=== PATIENT | female | born 1960 | race Two or more races ===

== ENCOUNTER 2016-06-04 13:27 | Emergency (ER) | payer SELFPAY ==
[~2016-06-04] VITALS: Ht 154.9 cm; Wt 66.2 kg
[2016-06-04 13:32] VITALS: BP 94/63
[2016-06-04 14:20] LABS: BILIRUBIN,URINE SMALL (NEG); GLUCOSE,URINE NEGATIVE (NEG)
[2016-06-04 14:21] LABS: BACTERIA,URINE FEW /HPF (0-FEW); NITRITE,URINE NEGATIVE (NEG); PROTEIN,URINE 100 mg/dL (NEG-TRACE); RBC,URINE OCC /HPF (0-2); UROBILINOGEN,URINE 0.2 mg/dL (0.2 mg/dL); WBC,URINE >40 /HPF (0-4)
[2016-06-04] MEDS ORDERED: IV NORMAL SALINE 1000ML BAG 1,000 ML IV ONE (14:30)
--- NOTE | 2016-06-04 14:53 | PHYS DOC ---
Past Medical History Past Medical History: No Pertinent History Past Surgical History: No Surgical History Alcohol Use: None Drug Use: None Adult General Chief Complaint Chief Complaint: FLANK PAIN HPI HPI Patient is a 55 year old female who presents with family for dysuria, fever and flank pain developing over the past few days. Pain is constant, bilateral, achy. She denies abdominal pain, nausea or vomiting, hematuria, chest pain, dyspnea, cough, diarrhea, constipation. Denies headache, rhinorrhea, sore throat. She was sent from outside clinic for evaluation of pyelonephritis. Review of Systems Review of Systems Constitutional: Has fever and chills [] Eyes: Denies change in visual acuity, redness, or eye pain [] HENT: Denies nasal congestion or sore throat [] Respiratory: Denies cough or shortness of breath [] Cardiovascular: No additional information not addressed in HPI [] GI: Denies abdominal pain, nausea, vomiting, bloody stools or diarrhea [] : Denies hematuria [] Musculoskeletal: Denies joint pain [] Integument: Denies rash or skin lesions [] Neurologic: Denies headache, focal weakness or sensory changes [] Endocrine: Denies polyuria or polydipsia [] Current Medications Current Medications Current Medications Medications (Trade) Dose Ordered Sig/Shelia Start Time Stop Time Status Last Admin Dose Admin Sodium Chloride (Iv Sodium Chloride 0.9% 1000ml Bag) 1,000 ml @ 1,000 mls/hr 1X ONCE 06/04/16 14:30 06/04/16 15:29 06/04/16 14:25 1,000 MLS/HR Allergies Allergies Allergies Coded Allergies Type Severity Reaction Last Updated Verified No Known Drug Allergies 06/04/16 No Physical Exam Physical Exam Constitutional: Well developed, well nourished, no acute distress, non-toxic appearance. [] HENT: Normocephalic, atraumatic, bilateral external ears normal, oropharynx moist, no oral exudates, nose normal. [] Eyes: PERRLA, EOMI, conjunctiva normal, no discharge. [] Neck: Normal range of motion, supple. [] Cardiovascular:Heart rate regular rhythm [] Lungs & Thorax: Bilateral breath sounds clear to auscultation [] Abdomen: Bowel sounds normal, soft, no tenderness. [] Skin: Warm, dry, no erythema, no rash. [] Back: No tenderness. Has mild bilateral CVA tenderness. [] Extremities: No tenderness, ROM intact, no edema. [] Neurologic: Alert and oriented X 3, normal motor function, normal sensory function, no focal deficits noted. [] Psychologic: Affect normal, judgement normal, mood normal. [] Current Patient Data Vital Signs Vital Signs Date Time Temp Pulse Resp B/P Pulse Ox O2 Delivery O2 Flow Rate FiO2 06/04/16 13:32 98.5 87 18 94/63 97 Room Air 98.5 Lab Values Laboratory Tests Test 06/04/16 13:40 Urine Collection Type Unknown Urine Color Yellow Urine Clarity Cloudy Urine pH 6.0 Urine Specific [place] 1.020 Urine Protein 100mg/dL (NEG-TRACE) Urine Glucose (UA) Negativemg/dL (NEG) Urine Ketones (Stick) Tracemg/dL (NEG) Urine Blood Moderate (NEG) Urine Nitrite Negative (NEG) Urine Bilirubin Small (NEG) Urine Urobilinogen Dipstick 0.2mg/dL (0.2 mg/dL) Urine Leukocyte Esterase Large (NEG) Urine RBC Occ/HPF (0-2) Urine WBC >40/HPF (0-4) Urine Bacteria Few/HPF (0-FEW) Urine Mucus Slight/LPF Course & Med Decision Making Course & Med Decision Making Pertinent Labs and Imaging studies reviewed. (See chart for details) She feels better after IVFs. Discussed care at home for pyelonephritis. Return precautions given. Patient and family understand and agree with plan. Dragon Disclaimer Dragon Disclaimer This electronic medical record was generated, in whole or in part, using a voice recognition dictation system. Departure Departure Impression: Primary Impression: Acute pyelonephritis Disposition: 01 HOME, SELF-CARE Condition: STABLE Patient Instructions: Pyelonephritis, Adult, [id number] Additional Instructions: Take ciprofloxacin for urinary tract infection. Take promethazine as needed for nausea. Take Tylenol or ibuprofen as needed for moderate pain. Take hydrocodone as needed for severe pain. Do not drink, drive or operate heavy machinery after taking hydrocodone as it may make you sleepy. Follow-up with your primary care doctor. Return for any concerns. Scripts Hydrocodone Bit/Acetaminophen (Hydrocodone-Apap 5-325 )1 Each Tablet1-2 Tab PO PRN Q6HRS PRN PAIN #10 TAB Prov:Yusuf MAURICIO MD 06/04/16 Promethazine Hcl 25 Mg Tablet1 Tab PO PRN Q6HRS PRN NAUSEA #20 TAB Prov:Yusuf MAURICIO MD 06/04/16 Ciprofloxacin Hcl 500 Mg Tablet1 Tab PO BID #14 TAB Prov:Yusuf MAURICIO MD 06/04/16 Yusuf MAURICIO MD Jun 04, 2016 14:53
[2016-06-04] MEDS ORDERED: HYDR-2666 PO (15:02)
[2016-06-04] MEDS ORDERED: CIPR500T PO (15:02)
[2016-06-04] MEDS ORDERED: PROM25TA10 PO (15:02)
== END 2016-06-04 15:20 | disposition home or self-care (01) ==
LOC: ER 13:27
DX: N10 Acute pyelonephritis (principal)
CPT/HCPCS: 81001; 87086; 96360; 99284; J7030; 87186